=== PATIENT | female | born 1925 | race African-American/Black ===

== ENCOUNTER 2016-10-28 20:23 | Emergency (ER) | payer MEDICARE ==
[~2016-10-28] VITALS: Ht 162.6 cm; Wt 72.6 kg
[2016-10-28 20:35] VITALS: BP 212/90
--- NOTE | 2016-10-28 20:44 | Emergency Room Report ---
History of Present Illness General Chief Complaint: Multiple Trauma/Fall Source: Patient, Family Member Present Illness HPI [id number] BIBEMS after accidental slip and fall and hit back of head on ground. Denies LOC, bleeding, nausea/vomiting, blurry/double vision, weakness to upper/ lower extremities. Denies neck pain or limited range of motion Not on ASA or AC Denies any other pain or injury Allergies: Coded Allergies: No Known Allergies (Unverified , 10/28/16) Patient History Past Medical History: HTN Past Surgical History: none Pertinent Family History: none Social History: Denies: alcohol use, drug use, smoking Last Menstrual Period: n/a Now: No Immunizations: UTD Reviewed Nursing Documentation: PMH: Agreed, PSxH: Agreed Nursing Documentation-PMH Hx Hypertension: Yes Review of Systems All Other Systems: negative except mentioned in HPI Physical Exam Vital Signs Date Time Temp Pulse Resp B/P Pulse Ox O2 Delivery O2 Flow Rate FiO2 10/28/16 20:18 97.9 70 16 216/83 96 10/28/16 20:35 Room Air Sp02 EP Interpretation: reviewed, abnormal General Appearance: normal inspection, well appearing, no apparent distress, alert, GCS 15, non-toxic Head: normocephalic, other - 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 Eyes: bilateral eye EOMI, bilateral eye PERRL ENT: normal ENT inspection, hearing grossly normal, normal voice Neck: normal inspection, full range of motion, supple, no meningismus, no bony tend, other - no midline c-spine ttp Respiratory: normal inspection, lungs clear, normal breath sounds, no respiratory distress, no retraction, no wheezing Cardiovascular #1: regular rate, rhythm, no edema Gastrointestinal: normal inspection, normal bowel sounds, non tender, soft, no guarding, no hernia Genitourinary: no CVA tenderness Musculoskeletal: normal inspection, back normal, normal range of motion, Edith' s Sign negative Neurologic: normal inspection, alert, oriented x3, responsive, contract graphic designer III-XII nml as tested, motor strength/tone normal, speech normal Psychiatric: normal inspection, judgement/insight normal, mood/affect normal Skin: normal inspection Medical Decision Making Diagnostic Impression: Primary Impression: Fall Qualified Codes: W19.XXXA - Unspecified fall, initial encounter Additional Impression: Head contusion Qualified Codes: S00.03XA - Contusion of scalp, initial encounter ER Course CT head negative for ICH or trauma Scalp hematoma Not on AC, ASA so no need for admission, serial CT head No neuro deficits on serial exam Patient's family here to take her home [place] home Last Vital Signs Date Time Temp Pulse Resp B/P Pulse Ox O2 Delivery O2 Flow Rate FiO2 10/28/16 20:35 62 19 212/90 100 Room Air 10/28/16 20:18 97.9 Status: improved Disposition: HOME, SELF-CARE JOHAN CORRALES M.D. October 28, 2016 20:44
[2016-10-28 21:15] VITALS: BP 206/93
--- NOTE | 2016-10-29 11:09 | Diagnostic Imaging Report ---
Indication: PAIN posterior trauma, status post fall Technique: spiral acquisitions obtained through the brain. Angled axial and coronal 5 x 5 mm slices were reconstructed. No IV contrast utilized. Radiation dose was minimized using automated exposure control Total dose length product 1432 mGycm. CTDIvol(s) 70 mGy Comparison: none FINDINGS: No acute hemorrhage or edema. No mass effect or midline shift. There is age-related enlargement of the ventricles and extra axial CSF spaces. There is periventricular deep white matter ischemic change. Normal orellana-white differentiation. There is mastoid opacification on the left, minimal. Visualized sinuses are unremarkable. Intact calvarium. There is a right high parietal scalp there is. Is evidence of prior cataract surgery on the left. IMPRESSION: Chronic and age-related changes. Negative for acute intracranial bleed or mass effect Evidence of right high parietal scalp soft tissue injury Minimal mastoid disease on the left This agrees with the preliminary interpretation provided overnight by Dr. Rodriguez The CT scanner at [facility] is accredited by the [employer] and the scans are performed using protocols designed to limit radiation exposure to as low as reasonably achievable to attain images of sufficient resolution adequate for diagnostic evaluation
== END 2016-10-28 22:01 | disposition home or self-care (01) ==
LOC: EDBD 20:23 → EMR 21:31 → EDBD 21:31 → EMR 22:01
DX: S00.03XA Contusion of scalp, initial encounter (principal); W01.0XXA Fall on same level from slipping, tripping and stumbling without subsequent striking against object, initial encounter; Y92.89 Other specified places as the place of occurrence of the external cause; I10 Essential (primary) hypertension; H74.92 Unspecified disorder of left middle ear and mastoid
CPT/HCPCS: 70450; 99284